=== PATIENT | male | born 1995 | race Two or more races ===

== ENCOUNTER 2020-01-21 17:33 | Emergency (ER) | payer OTHER ==
[~2020-01-21] VITALS: Ht 167.6 cm; Wt 113.4 kg
[2020-01-21] MEDS ORDERED: LIDOCAINE 1% HCL (LOCAL ANESTH.) INJ 20ML MDV ONE (18:42)
[2020-01-21] MEDS ORDERED: BUPIVACAINE W/ EPINEPH 0.5% MPF 30ML VIAL IJ ONE (18:45)
[2020-01-21] MEDS ORDERED: TETANUS-DIPTH-ACEL PERTUSSIS 0.5ML SYR Tdap IM ONE (19:00)
[2020-01-21] MEDS ORDERED: BUPIVACAINE 0.75% INJ 10ML MPV SDV IJ ONE (19:00)
[2020-01-21] MEDS ORDERED: cefTRIAXone W LIDOCAINE 1 GM IM IM ONE (21:00)
[2020-01-21 22:00] VITALS: BP 124/74
[2020-01-21] MEDS ORDERED: cefTRIAXone SOD 1,000 MG VL ONE (22:41)
[2020-01-21] MEDS ORDERED: LIDOCAINE 2% (LOCAL ANESTH.) PF 5ml SDV ONE (22:41)
== END 2020-01-21 23:16 | disposition home or self-care (01) ==
LOC: ER 17:33
DX: S61.307A Unspecified open wound of left little finger with damage to nail, initial encounter (principal); S62.637A Displaced fracture of distal phalanx of left little finger, initial encounter for closed fracture; X58.XXXA Exposure to other specified factors, initial encounter; Y93.89 Activity, other specified; Y92.89 Other specified places as the place of occurrence of the external cause; Y99.8 Other external cause status
CPT/HCPCS: 29130; 73130; 90471; 90715; 96372; 99284; J0696; J2001; J3490